=== PATIENT | female | born 1960 | race Hispanic/Latino ===

== ENCOUNTER 2017-11-06 12:08 | Outpatient (CLI) | payer BC ==
[2017-11-06 12:33] LABS: Hematocrit 42.3 % (30.3-42.9); Hemoglobin 14.3 gm/dl (10.1-14.3); Mean Corpuscular HGB Conc 34 % (30-34); Mean Corpuscular Hemoglobin 32 pg (28-32); Mean Corpuscular Volume 94 fl (79-97); Platelet Count 269 K/mm3 (140-440); Red Blood Count 4.51 M/mm3 (3.65-5.03); Red Cell Distribution Width 13.1 % (13.2-15.2)
[2017-11-06 13:41] LABS: Alanine Aminotransferase 22 units/L (7-56); Albumin 4.3 g/dL (3.9-5); BUN/Creatinine Ratio 27; Blood Urea Nitrogen 16 mg/dL (7-17); Calcium 9.5 mg/dL (8.4-10.2); Chol/HDL Ratio 2.95 %; HDL Cholesterol 66 mg/dL (40-59); Hemolysis Index 8; LDL Cholesterol,Direct 109 mg/dL (50-130)
== END 2017-11-06 12:09 | disposition home or self-care (01) ==
LOC: LAB 12:08
PROVIDERS: ATTEND Family Medicine
DX: Z00.01 Encounter for general adult medical examination with abnormal findings (principal); R79.89 Other specified abnormal findings of blood chemistry; Z79.899 Other long term (current) drug therapy
CPT/HCPCS: 36415; 80053; 80061; 84443; 85027

== ENCOUNTER → 2018-05-15 | Outpatient (CLI) | payer BC ==
--- NOTE | 2018-05-16 12:45 | Mammography Report ---
BILATERAL DIGITAL SCREENING MAMMOGRAM with CAD: 05/15/18 CLINICAL: Routine screening. COMPARISON:11/14/14 and 05/25/10 FINDINGS: The breasts are heterogeneously dense with bilateral parenchymal asymmetries requiring additional imaging.New architectural distortion is identified at the margin of a right outer asymmetry on the CC view.A left outer asymmetry is larger with a slightly different shape. No suspicious calcifications. IMPRESSION: Bilateral asymmetries requiring further workup. BI-RADS CATEGORY: 0 -- Additional Imaging Evaluation Required RECOMMENDATION: Recall for bilateral mediolateral and spot magnification views and bilateral breast ultrasound if needed. ACR BI-RADS MAMMOGRAPHIC CODES: 0 = Needs additional imaging evaluation; 1 = Negative; 2 = Benign; 3 = Probably benign; 4 = Suspicious; 5 = Malignant; 6 = Known biopsy-proven malignancy COMMENT: 1. Dense breast tissue, i.e., adenosis, fibrocystic changes, etc., may obscure an underlying neoplasm. 2. Approximately 10% of cancers are not detected with mammography. 3. A negative mammography report should not delay biopsy if a clinically suspicious mass is present. COMMENT: Patient follow-up letters are generated via our [employer] application.
== END | disposition home or self-care (01) ==
LOC: SPVWC 09:58
DX: Z12.31 Encounter for screening mammogram for malignant neoplasm of breast (principal); E66.9 Obesity, unspecified
CPT/HCPCS: 77067

== ENCOUNTER 2018-05-24 08:10 | Outpatient (CLI) | payer BC ==
--- NOTE | 2018-05-24 09:43 | Mammography Report ---
BILATERAL DIGITAL DIAGNOSTIC MAMMOGRAM and BILATERAL BREAST ULTRASOUND: 05/24/18 08:10:00 CLINICAL: Recalled for bilateral asymmetries. COMPARISON:05/15/18 screening FINDINGS: Bilateral true lateral and spot magnification CC views were performed. Bilateral asymmetries appear to be asymmetric fibroglandular structures with no suspicious features. Ultrasound of both breasts (including all four quadrants and the retroareolar area of each breast) was performed and demonstrated normal fibroglandular and fatty structures and a few tiny benign cysts. Small right axillary lymph nodes with benign morphology. No suspicious mass or shadowing. IMPRESSION: Bilateral benign mammographic asymmetries and no suspicious findings by ultrasound. BI-RADS CATEGORY: 2 - - Benign RECOMMENDATION: Routine mammographic screening in one year. ACR BI-RADS MAMMOGRAPHIC CODES: 0 = Needs additional imaging evaluation; 1 = Negative; 2 = Benign; 3 = Probably benign; 4 = Suspicious; 5 = Malignant; 6 = Known biopsy-proven malignancy COMMENT: 1. Dense breast tissue, i.e., adenosis, fibrocystic changes, etc., may obscure an underlying neoplasm. 2. Approximately 10% of cancers are not detected with mammography. 3. A negative mammography report should not delay biopsy if a clinically suspicious mass is present. COMMENT: Patient follow-up letters are generated via our [facility] application.
== END 2018-05-24 08:11 | disposition home or self-care (01) ==
LOC: SPVWC 08:10
DX: N64.89 Other specified disorders of breast (principal); E66.9 Obesity, unspecified
CPT/HCPCS: 77066

== ENCOUNTER 2019-07-10 08:12 | Outpatient (CLI) | payer BC ==
--- NOTE | 2019-07-10 12:44 | Mammography Report ---
DIGITAL SCREENING MAMMOGRAM WITH CAD, 07/10/2019 INDICATION: Routine screening mammography. TECHNIQUE: Digital bilateral 2D mammography was obtained in the craniocaudal and mediolateral obliq ue projections. This examination was interpreted with the benefit of Computer-Aided Detection analysi s. COMPARISON: 05/24/2018 and 11/14/2014 FINDINGS: Breast Density: The breasts are heterogeneously dense, which may obscure small masses. There is no evidence of dominant mass, suspicious calcifications or architectural distortion in eithe r breast. The fibroglandular pattern is unchanged compared to previous exams. IMPRESSION: No mammographic evidence of malignancy. Follow up recommendation: Routine yearly BI-RADS Category 2: Benign. A "normal" or negative report should not discourage follow up or biopsy of a clinically significant f inding. A written summary of these findings will be mailed to the patient. The patient will be entered into a mammography reporting system which will generate a reminder letter for the patient's next appointmen t at the appropriate interval. The [employer] recommends yearly mammograms starting at age 40 and continuing as l migel as a woman is in good health. Breast MRI is recommended for women with an approximate 20-25% or greater lifetime risk of breast cancer, including women with a strong family history of breast or ova connor cancer or who have been treated for Hodgkin's disease. Signer Name: Dionisio Rivero MD Signed: 07/10/2019 12:39 PM Workstation Name: [id number]
== END 2019-07-10 08:13 | disposition home or self-care (01) ==
LOC: SPVWC 08:12
DX: Z12.31 Encounter for screening mammogram for malignant neoplasm of breast (principal)
CPT/HCPCS: 77067

== ENCOUNTER 2020-07-14 07:46 | Outpatient (CLI) | payer BC ==
--- NOTE | 2020-07-14 09:46 | Ultrasound Report ---
US pelvic complete, US transvaginal INDICATION / CLINICAL INFORMATION: POST MENOPAUSAL BLEEDING. COMPARISON: None available. FINDINGS: Uterus is minimally enlarged and contains a 4.1 cm fibroid on the left. Endometrial canal measures 1. 3 cm. The ovaries are normal in size and appearance. No free fluid is seen. IMPRESSION: Minimally enlarged uterus containing a 4.1 cm fibroid on the left Signer Name: Kranthi ROY Signed: 07/14/2020 9:41 AM Workstation Name: [email or web address]
--- NOTE | 2020-07-14 10:26 | Mammography Report ---
DIGITAL SCREENING MAMMOGRAM WITH CAD, 07/14/2020 INDICATION: Routine screening mammography. TECHNIQUE: Digital bilateral 2D mammography was obtained in the craniocaudal and mediolateral obliq ue projections. This examination was interpreted with the benefit of Computer-Aided Detection analysi s. COMPARISON: 07/10/2019, 05/24/2018 FINDINGS: Breast Density: There are scattered areas of fibroglandular density. There is no evidence of dominant mass, suspicious calcifications or architectural distortion in eithe r breast. There have been no significant interval changes. IMPRESSION: Follow up recommendation: Routine yearly BI-RADS Category 1: Negative. A "normal" or negative report should not discourage follow up or biopsy of a clinically significant f inding. A written summary of these findings will be mailed to the patient. The patient will be entered into a mammography reporting system which will generate a reminder letter for the patient's next appointmen t at the appropriate interval. The [employer] recommends yearly mammograms starting at age 40 and continuing as l migel as a woman is in good health. Breast MRI is recommended for women with an approximate 20-25% or greater lifetime risk of breast cancer, including women with a strong family history of breast or ova connor cancer or who have been treated for Hodgkin's disease. Signer Name: Brock Bravo MD Signed: 07/14/2020 10:20 AM Workstation Name: [id number]
== END 2020-07-14 07:47 | disposition home or self-care (01) ==
LOC: SPVWC 07:46
DX: Z12.31 Encounter for screening mammogram for malignant neoplasm of breast (principal); D25.9 Leiomyoma of uterus, unspecified; N95.0 Postmenopausal bleeding
CPT/HCPCS: 76830; 76856; 77067

== ENCOUNTER 2021-12-06 08:33 | Outpatient (CLI) | payer BC ==
--- NOTE | 2021-12-07 11:24 | Mammography Report ---
DIGITAL SCREENING MAMMOGRAM WITH CAD, 12/06/2021 CLINICAL INFORMATION / INDICATION: Routine screening mammography. SCREENING MAMMOGRAM TECHNIQUE: Digital bilateral 2D mammography was obtained in the craniocaudal and mediolateral obliqu e projections. This examination was interpreted with the benefit of Computer-Aided Detection analysis . COMPARISON: 05/15/2018 through 07/14/2020. FINDINGS: Breast Density: There are scattered areas of fibroglandular density. No dominant mass, suspicious calcifications, or architectural distortion in either breast. Benign-appearing nodularity bilaterally has not changed significantly. IMPRESSION: No mammographic evidence of malignancy. Follow up recommendation: Routine yearly BI-RADS Category 2: BENIGN. A "normal" or negative report should not discourage follow up or biopsy of a clinically significant f inding. A written summary of these findings will be mailed to the patient. The patient will be entered into a mammography reporting system which will generate a reminder letter for the patient's next appointmen t at the appropriate interval. The [employer] recommends yearly mammograms starting at age 40 and continuing as l migel as a woman is in good health. Breast MRI is recommended for women with an approximate 20-25% or greater lifetime risk of breast cancer, including women with a strong family history of breast or ova connor cancer or who have been treated for Hodgkin's disease. Signer Name: Michael Aiken MD Signed: 12/07/2021 11:20 AM Workstation Name: [id number]
== END 2021-12-06 08:34 | disposition home or self-care (01) ==
LOC: SPVWC 08:33
DX: Z12.31 Encounter for screening mammogram for malignant neoplasm of breast (principal); N64.89 Other specified disorders of breast
CPT/HCPCS: 77067